=== PATIENT | female | born 1990 | race Two or more races ===

== ENCOUNTER 2021-01-14 22:13 | Emergency (ER) | payer BC ==
[~2021-01-14] VITALS: Ht 172.7 cm; Wt 61.2 kg
[2021-01-15] MEDS ORDERED: PEPCID AC20 MG PO (00:01)
[2021-01-15] MEDS ORDERED: ZOFRAN8 MG PO (00:01)
== END 2021-01-15 | disposition home or self-care (01) ==
LOC: ER 22:13
DX: K52.9 Noninfective gastroenteritis and colitis, unspecified (principal)